=== PATIENT | male | born 2000 | race Caucasian/White ===

== ENCOUNTER 2024-10-22 15:34 | Outpatient (CLI) | payer OTHER, SELFPAY ==
[2024-10-22 15:59] LABS: Strep A DNA Probe* NOT DETECTED (Not Detectd)
== END 2024-10-22 15:35 | disposition home or self-care (01) ==
LOC: NFLDUCREF 15:34
PROVIDERS: Visit Provider Family Medicine
DX: J02.9 Acute pharyngitis, unspecified (principal)
CPT/HCPCS: 87651